=== PATIENT | male | born 1950 | race Caucasian/White ===

== ENCOUNTER 2024-04-05 15:23 | Emergency (ER) | payer MEDICARE ==
[~2024-04-05] VITALS: Ht 177.8 cm; Wt 95.0 kg
[2024-04-05 15:38] VITALS: BP 164/93
[2024-04-05 16:01] VITALS: BP 162/97
[2024-04-05 16:31] VITALS: BP 159/86
[2024-04-05 17:30] VITALS: BP 159/86
== END 2024-04-05 17:43 | disposition home or self-care (01) ==
LOC: ED 15:23
DX: M79.604 Pain in right leg (principal); M79.89 Other specified soft tissue disorders